=== PATIENT | female | born 1950 | race African-American/Black ===

== ENCOUNTER 2021-09-06 10:23 | Emergency (ER) | payer MEDICARE, OTHER ==
[2021-09-06 10:31] VITALS: BP 162/9; PULSE 90; TEMP 97.8; BMI 33.3
[2021-09-06] MEDS ORDERED: ACETAMINOPHEN 500 MG TABLET (FP) PO ONE (11:19)
[2021-09-06] MEDS ORDERED: ACETAMINOPHEN 500 MG TABLET (FP) ONE (11:25)
== END 2021-09-06 12:34 | disposition home or self-care (01) ==
LOC: JERFT 10:23
DX: S93.401A Sprain of unspecified ligament of right ankle, initial encounter (principal); W06.XXXA Fall from bed, initial encounter
CPT/HCPCS: 73610-TC-RT-FY; 73630-TC-RT-FY; 99283-25